=== PATIENT | female | born 1960 | race Caucasian/White ===

== ENCOUNTER 2022-01-07 20:05 | Emergency (ER) | payer BC ==
[~2022-01-07] VITALS: Ht 162.6 cm; Wt 89.4 kg
[2022-01-07] MEDS ORDERED: CRESTOR20 MG PO (20:50)
[2022-01-07] MEDS ORDERED: ZOLOFT100 MG PO (20:50)
[2022-01-07] MEDS ORDERED: HYDROCHLOROTHIA25 MG PO (20:51)
[2022-01-07] MEDS ORDERED: OMEPRAZOLE20 MG PO (20:52)
[2022-01-07] MEDS ORDERED: OZEMPIC1 MG/0.71 SUB-Q (20:52)
== END 2022-01-07 21:00 | disposition home or self-care (01) ==
LOC: ED 20:05
DX: R10.9 Unspecified abdominal pain (principal); R07.89 Other chest pain; L29.9 Pruritus, unspecified; E11.9 Type 2 diabetes mellitus without complications; I10 Essential (primary) hypertension; Z88.8 Allergy status to other drugs, medicaments and biological substances; Z88.1 Allergy status to other antibiotic agents; Z79.899 Other long term (current) drug therapy
CPT/HCPCS: 99284